=== PATIENT | female | born 1970 | race Caucasian/White ===

== ENCOUNTER 2023-08-17 20:19 | Emergency (ER) | payer BC ==
[2023-08-17 21:11] LABS: #Basophils Less than 0.03 10x3/uL (0.0-0.2); %Basophils 0.4 % (0.0-1.0); %Eosinophils 0.9 % (0.0-10.0); %Lymphocytes 18.5 % (21.0-51.0); Hematocrit 39.1 % (36.0-47.0); Hemoglobin 12.9 g/dL (12.0-16.0); Mean Corpuscular Hemoglobin 31.5 pg (27.0-31.0); Mean Corpuscular Volume 95.4 fL (78.0-98.0); Mean Platelet Volume 9.3 fL (7.4-10.4); Platelet Count 250 10x3/uL (130-400); RBC Distribution Width 13.8 % (11.5-14.5)
[2023-08-17 21:25] LABS: ALT (SGPT) 11 U/L (8-55); AST (SGOT) 13 U/L (5-34); Albumin 3.7 g/dL (3.5-5.0); Alkaline Phosphatase 103 U/L (40-110); Anion Gap 14 mmol/L (10-20); BUN (Urea Nitrogen) 13 mg/dL (9.8-20.1); Bilirubin, Total 0.3 mg/dL (0.2-1.2); Calc. Creatinine Clearance 0 mL/min (70-130); Calcium 9.5 mg/dL (7.8-10.44); Carbon Dioxide 25 mmol/L (22-29); Chloride 103 mmol/L (98-107); Estimated GFR 52; Globulin 4.4 g/dL (2.4-3.5); Glucose 107 mg/dL (70-105); Lipase 18 U/L (8-78); Potassium 3.4 mmol/L (3.5-5.1); Protein, Total 8.1 g/dL (6.0-8.3); Sodium 139 mmol/L (136-145)
[2023-08-17 21:32] LABS: Troponin I Less than 0.010 ng/mL (< 0.028)
[2023-08-17] MEDS ORDERED: Acetaminophen 500 MG TAB ONE (22:02)
[2023-08-17] MEDS ORDERED: diphenhydrAMINE 50 MG/ML VIAL ONE (22:02)
[2023-08-17] MEDS ORDERED: Metoclopramide HCl 10 MG (2 mL) VIAL ONE (22:03)
== END 2023-08-17 23:26 | disposition home or self-care (01) ==
LOC: ERS 20:19
DX: R55 Syncope and collapse (principal)
CPT/HCPCS: 36415; 71045; 80053; 83690; 84484; 85025; 85379; 93005; 96374; 96375; J1200; J2765